=== PATIENT | male | born 1995 | race Caucasian/White ===

== ENCOUNTER 2023-06-06 19:35 | Emergency (ER) | payer OTHER, SELFPAY ==
[2023-06-06 19:37] VITALS: BP 158/94
[2023-06-06 19:57] LABS: % Basophils 0.7 % (0-2); % Eosinophils 6.3 % (0-6); % Immature Granulocytes 0.2 % (0-0.5); % Lymphocytes 32.5 % (20.5-51.1); % Monocytes 9.3 % (1.7-9.3); Absolute Basophils 0.1 10^3/uL (0-0.2); Absolute Eosinophils 0.5 10^3/uL (0-0.7); Absolute Lymphocytes 2.7 10^3/uL (1.2-3.4); Absolute Monocytes 0.8 10^3/uL (0.1-0.6); Absolute Neutrophils 4.3 10^3/uL (1.4-6.5); Hematocrit 44.5 % (39.0-52.0); Hemoglobin 15.7 g/dL (13.0-18.0); Mean Corp Hgb Conc. 35.3 g/dL (33.0-37.0); Mean Corpuscular Hgb 29.8 pg (27.0-31.0); Mean Corpuscular Volume 84.6 fL (80.0-94.0); Nucleated Red Blood Cells % 0 % (-); Platelet Count 224 10^3/uL (130-400); Red Blood Cell Count 5.26 10^6/uL (4.70-6.10); Red Cell Dist. Width 13.1 % (11.5-14.5); White Blood Cell Count 8.4 10^3/uL (4.8-10.8)
[2023-06-06 20:10] LABS: ALT (SGPT) 18 U/L (0-50); AST (SGOT) 25 U/L (17-59); Albumin 4.4 g/dl (3.5-5.0); Alkaline Phosphatase 52 U/L (38-126); Blood Urea Nitrogen 23 mg/dl (9-20); Carbon Dioxide 28 mmol/L (22-30); Chloride 100 mmol/L (98-107); Glucose 105 mg/dl (70-99); Potassium 4.4 mmol/L (3.5-5.1); Sodium 140 mmol/L (135-145); Total Bilirubin 0.7 mg/dl (0.2-1.3); Total Protein 7.6 g/dl (6.3-8.2); eGFR > 60.00
--- NOTE | 2023-06-06 21:38 | ED.GENMED ---
History of Present Illness
General
Chief Complaint: Dizziness
Source: patient and family
Exam Limitations: none
Time Seen by Provider: 06/06/23 21:12
Nursing documentation reviewed up to this point in time: agreed with
Travel History
Have you had any contact with someone who has COVID-19?: No
Do you have any symptoms of coronavirus? Fever > 100 degrees, chills, cough, shortness of breath, sore throat, loss of taste or smell, muscle aches, or headache?: No
History of Present Illness
History of Present Illness:
28-year-old male limited past medical history takes the train from [facility] when he got [place] the train [place] this morning he was very dizzy unsteady walking into things, with a headache, mild nausea symptoms are worse with head
movement better with rest was unable to drive home, does not typically get a lot of headaches, took Excedrin without much relief, no fever chills no trauma he did have a URI recently
Past History
Past History
ED Past Medical History: Asthma
ED Past Surgical History: None
Social History
Tobacco: Non-smoker
Alcohol: None
Drug: None
Personal: Single
Living: with family
Employment: Employed
Family History
Family History: Other (Noncontributory)
Review of Systems
Review of Systems
All Other Systems: Not applicable
Constitutional: Denies fever or fatigue
EENT: Reports other (Mild congestion)
Respiratory: Reports no symptoms
Cardiac: Reports no symptoms
ABD/GI: Reports nausea
Neurological: Reports dizzy and headache
Endocrine: Reports no symptoms
Hematologic/Lymphatic: Reports no symptoms
Phy Exam
Physical Exam
Physical Exam:
Physical Exam
General: 28 male uncomfortable normal mental status
Neck: 1-2 beats of horizontal nystagmus worse with head movement Teresa-Hallpike to the right
Heart: s1/s2 regular rate and rhythm, no murmur. equal radial pulses.
Lungs: no acute respiratory distress. clear bilaterally
Abdomen: Nontender
Neuro: alert and oriented. no focal neurological deficits normal finger-nose bilateral
Skin: no rash
Psychiatric: well kept. interactive and cooperative
Extremities: no edema.
Course
Orders/Labs/Results
Orders:
Orders
06/06/23 19:39
Electrocardiogram (*1) Urgent
Reason for Study: Vertigo / Dizzy
EKG- Treatment ONCE
06/06/23 19:44
Complete Blood Count/With Diff Urgent
Comprehensive Metabolic Panel Urgent
06/06/23 21:26
CT Head W/o Iv Contrast Urgent
Comment:
Reason For Exam: ataxia
CT Sinuses W/o Iv Contrast Urgent
Comment:
Reason For Exam: atixia
0.9% Sodium Chloride 1000 ml [Nss] 1,000 ml IV BOLUS
Ondansetron Injectable [Zofran] 4 mg IV NOW STA
Abnormal Lab Results
06/06/23
19:44
Absolute Monos (auto) 0.8 H 10^3/uL
(0.1-0.6)
Eosinophils % 6.3 H %
(0-6)
BUN 23 H mg/dl
(9-20)
Glucose 105 H mg/dl
(70-99)
06/06/23 19:44
06/06/23 19:44
Vital Signs
Initial and Last Documented VS:
Initial Vital Signs
Temp Pulse Resp BP Pulse Ox
98.2 F 54 18 158/94 99
06/06/23 19:37 06/06/23 19:37 06/06/23 19:37 06/06/23 19:37 06/06/23 19:37
Last Documented Vital Signs
Temp Pulse Resp BP Pulse Ox
98.2 F 61 18 148/89 99
06/06/23 19:37 06/06/23 22:27 06/06/23 22:27 06/06/23 22:27 06/06/23 22:27
MDM/Problems Addressed
Differential Diagnosis Includes:
Benign positional vertigo mass malignancy intracerebral hemorrhage no signs of BIOLOGICAL TECHNICAL OFFICER infection
MDM/Problems Addressed:
Dizziness
Chronic conditions affecting care: Asthma
Acute Exacerbation and/or Progression of Chronic Illness: Asthma
*Radiology
Radiology exam reviewed: radiology read reviewed
*Pulse Oximetry
Patient hypoxic: no
*EKG
Interpreted by ED Provider?: Yes
Interpretation: normal
Comparison EKG: no comparison EKG present
Heart Rate: 68
Rate: normal
Rhythm: sinus
Ischemia: no ischemia
*Old Testament Professor Interpretation
Rate: normal
Interpretation: normal
Heart Rate: 68
Rhythm: sinus
*Critical Care Note
Total Time (30-74mins, 75-104mins- exclusive of procedures): Not Applicable
Update Note
Update Note:
CT reports noted
10:40 PM patient feeling better
ED Attending Note
-
Portions of this chart may have been created with voice recognition software.� Occasional wrong word or��sound alike� substitutions may have occurred due to the inherent limitations of voice recognition software.
Discharge Plan
Departure
Patient Disposition: Home (Routine Discharge)
Date of Disposition: 06/06/23
Time of Disposition: 22:41
Patient with high blood pressure during this ER visit?: No
Condition: Good
Discharge Problem:
Vertigo
Instructions: Vertigo (a Type of Dizziness) (DC), Vertigo (a type of dizziness)
Prescriptions:
New
meclizine [Antivert] 25 mg tablet,chewable
25 mg PO Q8HPRN PRN (Reason: nausea or vertigo) Qty: 20 0RF
No Action
azithromycin 250 MG tablet
250 mg PO DAILY Qty: 6 0RF
Rx Instructions:
Take 2 tablets on day one, then one tablet daily for the next 4 days.
albuterol sulfate [Proventil HFA] 90 MCG/PUFF HFA aerosol inhaler
2 puff inhalation Q4HPRN PRN (Reason: shortness of breath) Qty: 1 1RF
prednisone 20 MG tablet
20 mg PO BID Qty: 10 0RF
cetirizine 10 MG tablet
10 mg PO DAILY Qty: 30 0RF
Interventions
Interventions:
*Risk Screen - Suicide Last Done: 06/06/23 19:37
*General Assessment Last Done: 06/06/23 19:37
*Neglect/Abuse Screening Last Done: 06/06/23 19:37
*ED COVID-19 Vaccine History Last Done: 06/06/23 19:37
ED- Neurological Assessment Last Done: 06/06/23 22:28
ED Swallowing Screen Last Done: 06/06/23 22:28
[2023-06-06] MEDS: NSS 1000 IV (22:14)
[2023-06-06] MEDS: ZOFRAN 4 MG IV (22:14)
[2023-06-06 22:27] VITALS: BP 148/89
== END 2023-06-06 23:01 | disposition home or self-care (01) ==
LOC: EMR 19:35
PROVIDERS: Emergency Medicine; EMERGENCY PHYSICIAN Emergency Medicine; FAMILY PHYSICIAN Family Medicine
DX: R42 Dizziness and giddiness (principal); R51.9 Headache, unspecified; R11.0 Nausea; R09.81 Nasal congestion; J45.909 Unspecified asthma, uncomplicated
CPT/HCPCS: 99285; 96374; 96361; 70450; 70486; 80053; 85025; 93005